=== PATIENT | female | born 1955 | race African-American/Black ===

== ENCOUNTER → 2017-01-15 | Outpatient (CLI) | payer OTHER ==
--- NOTE | 2017-01-15 12:30 | RADIOLOGY REPORT (SQ) ---
EXAM DESCRIPTION: FOOT RIGHT COMPLETE COMPLETED DATE/TIME: 01/15/2017 10:24 am REASON FOR STUDY: PAIN IN RIGHT TOE(S) M79.674 PAIN IN RIGHT TOE(S) COMPARISON: None. NUMBER OF VIEWS: Three views. TECHNIQUE: AP, lateral and oblique radiographic images acquired of the right foot. LIMITATIONS: None. FINDINGS: MINERALIZATION: Normal. BONES: Bunion. Small plantar calcaneal spur. JOINTS: Hallux valgus with a bunion. SOFT TISSUES: No soft tissue swelling. No foreign body. OTHER: No other significant finding. IMPRESSION: 1. Hallux valgus with a bunion. 2. Small plantar calcaneal spur. TECHNICAL DOCUMENTATION: JOB ID: [id number] [employer]- All Rights Reserved
== END ==
LOC: OD 10:02
PROVIDERS: ATTEND Obstetrics & Gynecology
DX: M21.611 Bunion of right foot (principal); M77.31 Calcaneal spur, right foot; M79.674 Pain in right toe(s)

== ENCOUNTER → 2017-07-08 | Outpatient (CLI) | payer OTHER ==
--- NOTE | 2017-07-08 12:22 | XCELERA REPORT ---
[address] [address] Lower Extremity Arterial Evaluation Name: PRABHU ARMAS Age: 62 yrs Gender: Female : 1955 Patient Status: Outpatient Patient Location: Study Date: 07/08/2017 10:37 AM Procedure: A color flow and duplex scan of the lower extremity arteries was performed bilaterally with velocity and waveform anaylsis. Ankle brachial indicies performed. PPG's performed. Reason For Study: PVD Ordering Physician: CORAL FLOWER Performed By: Breonna Coffman Measurements and Calculations Right Left FIELD EXAMINER PSV 154.5 126.5 cm/sec Prox PFA PSV -66.8 -64.6 cm/sec Prox SFA PSV -104.2 77.7 cm/sec Mid SFA PSV -91.0 -102.6 cm/sec Dist SFA PSV -76.4 -56.9 cm/sec Prox Pop A PSV 40.9 39.0 cm/sec Dist PING PSV 95.1 84.5 cm/sec Dist PROJECT ADMINISTRATIVE ASSISTANT PSV 86.0 90.0 cm/sec Jack Pedis PSV 110.6 57.4 cm/sec Right Side Arterial Evaluation Normal velocity and triphasic waveforms noted from the Common Femoral artery to the Anterior Tibial artery with well preserved amplitude in the Posterior Tibial artery. 0-19% stenosis at the Posterior Tibial artery. Ankle Brachial index is 1.2. PPG's are normal. Left Side Arterial Evaluation Normal velocity and triphasic waveforms noted from the Common Femoral artery to the infregeniculate vessels. 0 % stenosis . Ankle Brachial index is 1.2. PPG's are normal. Interpretation Summary Mild hemodynamically significant lesions in the right lower extremity only, on duplex imaging, at rest. No hemodynamically significant lesions in the left lower extremity only, on duplex imaging, at rest. : CORAL FLOWER > Gaston Lucio
== END ==
LOC: SP 10:27
PROVIDERS: ATTEND Podiatrist Foot & Ankle Surgery
DX: I73.9 Peripheral vascular disease, unspecified (principal)
CPT/HCPCS: 93925